=== PATIENT | female | born 1980 | race American Indian/Alaskan Native ===

== ENCOUNTER 2018-08-15 16:59 | Emergency (ER) | payer SELFPAY ==
--- NOTE | 2018-08-15 18:37 | Emergency Department Report ---
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 Sometimes she feels as if the discomfort will radiate towards her left ear or the left side of the head. She denies any fever, drooling, trismus. She says it feels like there is something stuck towards the back left side of her throat. She tries to cough it up but nothing ever comes up. She took some ibuprofen for her symptoms with some mild relief. No past medical history. No sick contacts at home. She does not have a primary care physician. ED Past Medical Hx - Past Medical History Previous Medical History?: No - Surgical History Past Surgical History?: Yes Additional Surgical History: right bunionectomy, exp lap - Social History Smoking Status: Never Smoker Substance Use Type: Alcohol - Medications Home Medications: Home Medications Medication Instructions Recorded Confirmed Last Taken Type Azithromycin [Zithromax Z-CARROLL] 250 mg PO DAILY #6 tab 08/15/18 Unknown Rx ED Review of Systems ROS: Stated complaint: SORE THROAT/PAIN Other details as noted in HPI Comment: All other systems reviewed and negative Constitutional: denies: chills, fever Eyes: denies: eye pain, eye discharge, vision change ENT: ear pain, throat pain Respiratory: denies: cough, shortness of breath, wheezing Cardiovascular: denies: chest pain, palpitations Gastrointestinal: denies: abdominal pain, nausea, diarrhea Genitourinary: denies: urgency, dysuria, discharge Musculoskeletal: denies: back pain, joint swelling, arthralgia Skin: denies: rash, lesions Neurological: denies: weakness, numbness Physical Exam - Physical Exam Vital Signs: Vital Signs 08/15/18 17:03 Temperature 98.1 F Pulse Rate 87 Respiratory 18 Rate Blood Pressure 126/83 O2 Sat by Pulse 100 Oximetry Physical Exam: GENERAL: The patient is well-developed well-nourished. HENT: Normocephalic. Atraumatic. Patient has moist mucous membranes. No tonsillar hypertrophy but there is some erythema and there is hypervascular 2 to the posterior pharynx. No drooling or trismus. EYES: Extraocular motions are intact. Pupils equal reactive to light bilaterally. NECK: Supple. Trachea is midline. CHEST/LUNGS: Clear to auscultation. There is no respiratory distress noted. HEART/CARDIOVASCULAR: Regular. There is no tachycardia. There is no murmur. ABDOMEN: Abdomen is soft, nontender. Patient has normal bowel sounds. There is no abdominal distention. SKIN: Skin is warm and dry. NEURO: The patient is awake, alert, and oriented. The patient is cooperative. The patient has no focal neurologic deficits. The patient has normal speech. MUSCULOSKELETAL: There is no tenderness or deformity. There is no limitation range of motion. There is no evidence of acute injury. ED Course Vital Signs 08/15/18 17:03 Temperature 98.1 F Pulse Rate 87 Respiratory 18 Rate Blood Pressure 126/83 O2 Sat by Pulse 100 Oximetry ED Medical Decision Making - Medical Decision Making Rapid strep negative. The patient has moderate to significant discomfort. No drooling or trismus or hot potato voice. Patient will be placed on a Z-Carroll and encouraged follow-up with primary care and/or ENT but to return to the ER with any worsening of her symptoms or any acute distress. - Differential Diagnosis viral pharyngitis, strep pharyngitis, mononucleosis Critical Care Time: No Critical care attestation.: If time is entered above; I have spent that time in minutes in the direct care of this critically ill patient, excluding procedure time. ED Disposition Clinical Impression: Pharyngitis Qualifiers: Pharyngitis/tonsillitis etiology: unspecified etiology Qualified Code(s): J02.9 - Acute pharyngitis, unspecified Disposition: - TO HOME OR SELFCARE Is pt being admited?: No Condition: Stable Instructions: Pharyngitis (ED), Strep Throat (ED) Additional Instructions: Please follow up with a primary care physician. I have given you a referral for a local ENT in case she continued to have significant throat pain. Take the antibiotics as prescribed. Return to the emergency Department with any worsening of your symptoms or any acute distress. Prescriptions: Azithromycin [Zithromax Z-CARROLL] 250 mg PO DAILY #6 tab Referrals: PRIMARY CEDRICK, [Primary Care Provider] - 3-5 Days TISH SOUSA MD [Staff Physician] - 3-5 Days BELÉN LOVE MD [Staff Physician] - 3-5 Days Time of Disposition: 18:37
[2018-08-15 18:42] VITALS: BP 124/80
== END 2018-08-15 18:41 | disposition home or self-care (01) ==
LOC: ED 16:59
DX: J02.9 Acute pharyngitis, unspecified (principal)
CPT/HCPCS: 87116; 87430; 99283

== ENCOUNTER 2019-09-15 14:50 | Emergency (ER) | payer BC, OTHER ==
[2019-09-15 15:18] VITALS: BP 129/82
--- NOTE | 2019-09-15 15:21 | Event Note ---
ED Screening Note ED Screening Note: This initial assessment/diagnostic orders/clinical plan/treatment(s) is/are subject to change based on patients health status, clinical progression and re- assessment by fellow clinical providers in the ED. Further treatment and workup at subsequent clinical providers discretion. Patient/guardian urged not to elope from the ED as their condition may be serious if not clinically assessed and managed. Initial orders include: 39yo BF states that her R anterior wrist is itching, red and burning after she through away some garbage x 30 minutes prior to arrival.
[2019-09-15] MEDS ORDERED: DELTASONE PO ONE (16:07)
[2019-09-15] MEDS ORDERED: CLARITIN PO ONE (16:07)
--- NOTE | 2019-09-15 16:13 | Emergency Department Report ---
ED Rash HPI - HPI Chief Complaint: Skin Rash Stated Complaint: RT ARM BITE/ALLERGIC REACTION Time Seen by Provider: 09/15/19 16:07 Duration: Today Location: Upper Extremities Suspected Cause: Unknown Rash Symptoms: Yes Itching, No Facial Swelling, No Tongue/Oral Swelling, No Breathing Difficulties, No Choking Sensation, No Wheezing/Dyspnea, No Peeling, No Blistering, No Fever, No Lightheaded, No Malaise, No Myalgias Severity: mild Other History: 39-year-old female presents to ED complaining 2 red velasquez to right anterior arm she noticed today after she had been outside for some deficits in the trash. Patient states that she red dots are itching and burning in to touch. ED Review of Systems ROS: Stated complaint: RT ARM BITE/ALLERGIC REACTION Other details as noted in HPI ED Past Medical Hx - Past Medical History Previous Medical History?: No - Surgical History Past Surgical History?: Yes Additional Surgical History: right bunionectomy, exp lap from bowel and bladder - Social History Smoking Status: Never Smoker - Medications Home Medications: Home Medications Medication Instructions Recorded Confirmed Last Taken Type Azithromycin [Zithromax Z-JEN] 250 mg PO DAILY #6 tab 08/15/18 Unknown Rx Ibuprofen [Motrin] 600 mg PO Q8H PRN #20 tablet 10/05/18 Unknown Rx Triamcinolone 0.1% [Kenalog 0.1% 1 applic TP TID #1 tube 09/15/19 Unknown Rx CREAM] diphenhydrAMINE [Benadryl CAP] 25 mg PO QHS #24 capsule 09/15/19 Unknown Rx Rash Exam - Exam General: Vital signs noted. No distress. Alert and acting appropriately. HEENT: No Periorbital Edema, No Conjuctival Injection, No Chemosis, No Perioral Edema, No Tongue Edema, No Uvular Edema, No Compromised Airway, No Drooling Lungs: Yes Good Air Exchange (Normal Breath Sounds), No Wheezes, No Ronchi, No Stridor, No Cough, No Labored Respirations, No Retractions, No Use of Accessory Muscles, No Other Abnormal Lung Sounds Heart: Yes Regular, No Murmur Skin: Yes Maculopapular Rash, Yes Erythema, No Urticarial Rash, No Morbilliform rash, No Bulla(e), No Excoriations, No Weeping, No Tenderness, No Edema, No Encrustations, No Other Other: Positive: Abdomen Normal, Neurologic Normal, Musculoskeletal Normal ED Course Vital Signs 09/15/19 15:16 Temperature 98.2 F Pulse Rate 83 Respiratory 16 Rate Blood Pressure 129/82 [Right] O2 Sat by Pulse 100 Oximetry ED Medical Decision Making - Medical Decision Making 39-year-old female presents with insect bites of the right arm. Patient is in no acute distress. Patient received Claritin and prednisone in the ER. Discussed topical steroids for rash on arm. Vital signs normal patient is in no acute distress. Critical care attestation.: If time is entered above; I have spent that time in minutes in the direct care of this critically ill patient, excluding procedure time. ED Disposition Clinical Impression: Insect bite Disposition: DC- TO HOME OR SELFCARE Is pt being admited?: No Does the pt Need Aspirin: No Condition: Stable Instructions: Insect Bite or Sting (ED) Additional Instructions: Make sure to follow up with the primary care physician as discussed. Take all your medications as you've been prescribed. If you have any worsening symptoms or develop new symptoms please return to ED immediately. Prescriptions: diphenhydrAMINE [Benadryl CAP] 25 mg PO QHS #24 capsule Triamcinolone 0.1% [Kenalog 0.1% CREAM] 1 applic TP TID #1 tube Referrals: [facility] [Provider Group] - 3-5 Days Forms: Work/School Release Form(ED) Time of Disposition: 16:56
== END 2019-09-15 17:14 | disposition home or self-care (01) ==
LOC: ED 14:50
DX: S40.861A Insect bite (nonvenomous) of right upper arm, initial encounter (principal); W57.XXXA Bitten or stung by nonvenomous insect and other nonvenomous arthropods, initial encounter; Y93.89 Activity, other specified; Y92.89 Other specified places as the place of occurrence of the external cause; Y99.8 Other external cause status
CPT/HCPCS: 99282; J7512